=== PATIENT | female | born 1990 | race Caucasian/White ===

== ENCOUNTER → 2018-02-17 | Outpatient (CLI) | payer BC, OTHER ==
[~2018-02-17] MED LIST: HYDROCODONE-AP1 EAC6 PO; ZOFRAN ODT4 MG PO
== END ==
LOC: NUC 09:30
DX: R10.10 Upper abdominal pain, unspecified (principal); R11.2 Nausea with vomiting, unspecified

== ENCOUNTER 2018-02-18 06:58 | Inpatient (IN) | payer BC, OTHER ==
[~2018-02-18] VITALS: Ht 175.3 cm; Wt 86.2 kg
--- NOTE | ~2018-02-18 | O ---
[facility] [place] [address] OPERATIVE REPORT Name: BRAD WRAY Room #: 426-P [facility] M..#: [id number] Admission: 02/18/18 Attend Phys: Arsh Castro MD Discharge: Date of : 89 Report #: [id number] THIS REPORT FOR: //name// CC: Seb Castro DATE OF SERVICE: 02/18/2018 PREOPERATIVE DIAGNOSIS: Acalculous cholecystitis/biliary dyskinesia. POSTOPERATIVE DIAGNOSIS: Acalculous cholecystitis/biliary dyskinesia. PROCEDURE PERFORMED: Laparoscopic cholecystectomy. SURGEON: Arsh Castro MD ANESTHESIA: General anesthesia. COMPLICATIONS: None. ESTIMATED BLOOD LOSS: 5 mL. FINDINGS: The gallbladder is covered by adhesions, consistent with chronic inflammation. Cystic artery overlapped the cystic duct and fibrosis in this area. Mild cholesterolosis seen in the gallbladder mucosa. PROCEDURE NOTE: With the patient under general anesthesia, IV antibiotic was administered, abdomen was prepped and draped in sterile fashion. Timeout was performed. A 0.25% Marcaine was used to anesthetize the skin and subcutaneous tissue. The patient had a previous curvilinear incision above the umbilicus with her being 17-week , decided to go above the umbilicus. The old incision was used. Fascia was identified. I went a little more cephalad, which I think had a fairly fresh fascia. This was grasped with hemostat, opened under visualization. 0 Vicryl suture placed on the fascia for retraction. Veress needle was then placed through the rest of the wall. Abdominal cavity was insufflated by CO2. Pneumoperitoneum was established easily. After getting a pressure of 14, 11 mm trocar was placed into the pneumoperitoneum. I went ahead and put the setting on the abdominal pressure to 12. That was plenty what I need to see. Two 5 mm trocars were placed in right upper quadrant and a 5 mm trocar in right epigastrium. The gallbladder was identified and the tip of the gallbladder was somewhat medial and this was the area where she was more tender on exam preop. It was localized to this area. The gallbladder was lifted over the liver and medially there were a lot of adhesions to the ventral surface of the gallbladder. These were taken down. Cautery was used. All the adhesions [address] [address] OPERATIVE REPORT Name: BRAD WRAY Room #: 426-P [facility] Gena Barrett#: [id number] Admission: 02/18/18 Attend Phys: Arsh Castro MD Discharge: Date of : 89 Report #: [id number] were freed. Proximal gallbladder was then identified, a second grasper was placed here. Peritoneum was dissected free over the cystic duct and artery laterally and then medially. There was a structure found and this had appearance of an artery rather than the duct. Actually, there were 2 separate branches in this area. These were isolated, seen to go up to the gallbladder, clipped x 2 proximally and 1 distally and then divided. The second branch was also isolated, clipped x 2 proximally and 1 distally. Then, the cystic duct was then exposed. I was pretty certain that this was the last cystic duct. The common duct was not able to be visualized, but was felt to be more medial and posterior. The cystic duct was clipped x 2 proximally and then opened the cystic duct and there was bile that came out of it, which told me that it was a cystic duct. The distal cystic duct was then clipped. Cystic duct was then divided. There was a small posterior artery. This was clipped x 2 and then divided with cautery. Gallbladder was freed from the liver bed without difficulty. The gallbladder was then removed through the infraumbilical port. The gallbladder was opened off the field. There was some cholesterolosis in the gallbladder wall. No other lesions identified. Liver bed was checked, hemostasis excellent. Clips were intact. No bleeding or bile seen. Irrigation was aspirated out. Trocar was then removed. CO2 was evacuated as much as possible. The fascial defect above the umbilicus closed with [id number] 0 Vicryl x 2. Skin was irrigated, closed with 5-0 PDS. Steri-Strip, Band-Aids applied. The patient tolerated the procedure well and was taken to the recovery room. By: [id number] Arsh Castro MD /nt
[2018-02-18 07:34] VITALS: BP 109/55
[2018-02-18 07:34] LABS: HEMATOCRIT 36.8 % (37.0-47.0)
[2018-02-18 21:15] VITALS: BP 105/59
[2018-02-19 08:10] VITALS: BP 95/60
[2018-02-19 13:21] LABS: ALBUMIN 3.2 g/dL (3.4-5.0); DIRECT BILIRUBIN 0.1 mg/dL (<0.1-0.3); TOTAL BILIRUBIN 0.5 mg/dL (<0.1-1.0); TOTAL PROTEIN 6.7 g/dL (6.4-8.2)
[2018-02-19 17:26] VITALS: BP 100/60
[2018-02-19 20:00] VITALS: BP 102/62
[2018-02-20 00:02] VITALS: BP 117/73
[2018-02-20 03:59] VITALS: BP 98/61
[2018-02-20 07:25] VITALS: BP 96/63
[2018-02-20 15:15] VITALS: BP 103/64
[2018-02-20] MEDS ORDERED: HYDROCODONE-AP1 EAC6 PO (15:35)
[2018-02-20] MEDS ORDERED: ZOFRAN ODT4 MG PO (15:36)
[2018-02-20 16:01] VITALS: BP 96/63
== END 2018-02-20 15:00 | disposition home or self-care (01) | DRG 781 ==
LOC: PRE 06:58 → 4E 06:59 → TBA 06:59 → 4E 06:59 → ENTRNSPT 02-20 16:25
PROVIDERS: Surgery
DX: O99.612 Diseases of the digestive system complicating pregnancy, second trimester (principal); K82.8 Other specified diseases of gallbladder; K81.9 Cholecystitis, unspecified; O99.512 Diseases of the respiratory system complicating pregnancy, second trimester; J45.909 Unspecified asthma, uncomplicated; R11.2 Nausea with vomiting, unspecified; Z90.49 Acquired absence of other specified parts of digestive tract; Z88.8 Allergy status to other drugs, medicaments and biological substances; Z3A.17 17 weeks gestation of pregnancy
CPT/HCPCS: 10783; 50010; 50101; 50411; 50555; 50558; 51489; 53307; 53310; 55245; 56462; 56525; 56526; 62110; 62900; 65135; 70005